=== PATIENT | female | born 1955 | race Caucasian/White ===

== ENCOUNTER 2017-08-03 17:43 | Emergency (ER) | payer OTHER ==
[~2017-08-03] VITALS: Ht 157.5 cm; Wt 65.9 kg
[2017-08-03 17:46] VITALS: TEMP 36.7; Ht 157.5 cm; Wt 65.9 kg
[2017-08-03] MEDS ORDERED: HYDR25TA4 PO (18:14)
[2017-08-03] MEDS ORDERED: LOSA1TAB38 PO (18:14)
[2017-08-03] MEDS ORDERED: GLC/500 PO (18:14)
[2017-08-03] MEDS ORDERED: GABA-113 PO (18:14)
[2017-08-03] MEDS ORDERED: OXYC-57 PO (18:14)
[2017-08-03] MEDS ORDERED: ATOR-26 PO (18:14)
[2017-08-03] MEDS ORDERED: DABI150C PO (18:14)
[2017-08-03] MEDS ORDERED: NTRGSL/4 UT (18:14)
[2017-08-03] MEDS ORDERED: ASPI81TA28 PO (18:14)
[2017-08-03] MEDS ORDERED: CETI10TA84 PO (18:14)
[2017-08-03] MEDS ORDERED: DOXY100C41 PO (18:33)
--- NOTE | 2017-08-03 18:34 | EMERGENCY ROOM VISIT NOTE ---
History Report prepared by Khang: Calli Sorenson Under the Supervision of: Dr. Baltazar Ramirez D.O. 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 She reports she pulled a hangnail out of her right ring finger 2 weeks ago and some pus came out at the time. She notes that now the pus is stuck in her finger. She describes her pain infection as a pressure. She also states she has a wet cough and gets pneumonia at least once a year. She is a current every day smoker. The patient reports that she is currently on Oxycodone for her leg but it has not helped her finger. Source of History: patient Onset: 2 weeks vessel captain Position: chest, finger(s) (right ring) Quality: pressure Modifying Factors (Worsening): other (smoking) Associated Symptoms: + cough (wet) Review of Systems See HPI for pertinent positives & negatives. A total of 10 systems reviewed and were otherwise negative. Past Medical & Surgical Medical Problems: (1) No significant past medical history No significant past medical history Family History Patient reports no known family medical history. Social History Smoking Status: Current Every Day Smoker Marital Status: Current/Historical Medications Scheduled Aspirin (Aspirin Ec), 81 MG PO DAILY Atorvastatin (Lipitor), 80 MG PO DAILY Cetirizine (Zyrtec), 10 MG PO DAILY Dabigatran Etexilate Mesylate (Pradaxa), 150 MG PO BID Gabapentin (Neurontin), 300 MG PO TID Hydrochlorothiazide (Hctz), 25 MG PO DAILY Losartan Potassium (Cozaar), 100 MG PO DAILY Metformin Hcl (Glucophage), 500 MG PO BID Nitroglycerin (Nitrostat), 0.4 MG UT PRN Scheduled PRN Oxycodone/Acetaminophen 5MG/325MG (Percocet 5MG/325MG), 1 TABLET PO Q6H PRN for Pain Allergies Coded Allergies: Cefprozil (Unverified Allergy, Intermediate, ., 08/03/17) Cephalexin (Unverified Allergy, Intermediate, ., 08/03/17) Penicillins (Unverified Allergy, Intermediate, ., 08/03/17) Physical Exam Vital Signs Date Time Temp Pulse Resp B/P (MAP) Pulse Ox O2 Delivery O2 Flow Rate FiO2 08/03/17 17:46 36.7 80 18 104/59 98 Room Air Physical Exam CONSTITUTIONAL/VITAL SIGNS: Reviewed / noted above. GENERAL: Non-toxic in appearance. INTEGUMENTARY: Warm, dry, and Ama. Paronychia of the right ring finger on the radial side. Does not purulent fluid but is erythematous and tender. HEAD: Normocephalic. EYES: without scleral icterus or trauma. ENT/OROPHARYNX: clear and moist. LYMPHADENOPATHY/NECK: Is supple without lymphadenopathy or meningismus. RESPIRATORY: Lungs equal. Mild coarseness and minimal scattered expiratory wheeze. CARDIOVASCULAR: Regular rate and rhythm. GI/ABDOMEN: Soft and nontender. No organomegaly or pulsatile mass. No rebound or guarding. Normal bowel sounds. EXTREMITIES: Warm and well perfused. BACK: No CVA tenderness. NEUROLOGICAL: Intact without focal deficits. PSYCHIATRIC: normal affect. MUSCULOSKELETAL: Normally developed with good muscle tone. Medical Decision & Procedures ED Course 175: Previous medical records were reviewed. The patient was evaluated in room A10. A complete history and physical examination was performed. 1814: On reevaluation, the patient is feeling slightly better. I discussed the results and findings with the patient. She verbalized agreement of the treatment plan. She was discharged home. Medical Decision Differential diagnosis: Etiologies such as cellulitis, abscess, MRSA infection, DVT, necrotizing fasciitis, dermatitis, drug eruption, as well as others were entertained.. The patient is a 61-year-old female who presents to the ED with a chief complaint of a paronychia that has been draining for the past couple of weeks but has not continued to drain. She reports tenderness and discomfort as well as redness in the right ring finger on the radial side. The patient also reports a cough that is productive for green sputum. She states that she does not have insurance coverage here and is requesting something from the $4 prescription at [facility] but is allergic to penicillins and cephalosporins. After reviewing this list with the pharmacist, the patient was offered doxycycline prescription for $38 for a 7 day course +/-Bactrim for $4. She will take the doxycycline prescription. She was prescribed this. The patient' s exam does reveal an occasional cough with some coarseness in the right lung as well as some mild scattered expiratory wheezes. The patient's finger does reveal what appears to be a recent paronychia. I did use an 18-gauge needle to attempt to cause drainage but no drainage was obtained. The skin was retracted from the nail with the needle as well. Patient will return for worsening or other concerns. Medication Reconcilliation Current Medication List: was personally reviewed by me Blood Pressure Screening Patient's blood pressure: Low blood pressure Blood pressure disposition: Did not require urgent referral Impression Primary Impression: Paronychia Additional Impressions: Cough Acute bronchitis Scribe Attestation The scribe's documentation has been prepared under my direction and personally reviewed by me in its entirety. I confirm that the note above accurately reflects all work, treatment, procedures, and medical decision making performed by me. Departure Information Dispostion Home / Self-Care Prescriptions Doxycycline (Monohydrate) (MONODOX) 100 Mg Cap 1 CAP PO BID for 7 Days, #14 CAP Prov: Baltazar Ramirez, Kalee. 08/03/17 Referrals No Doctor, Assigned (PCP) Patient Instructions My [facility] Additional Instructions Follow-up with your doctor for further care and evaluation in 5-7 days. Return to the emergency department for worsening or new symptoms or any concerns. You have been examined and treated today on an emergency basis only. This is not a substitute for, or an effort to provide, complete comprehensive medical care. It is impossible to recognize and treat all injuries or illnesses in a single emergency department visit. It is therefore important that you follow up closely with your doctor. Call as soon as possible for an appointment. Doxycycline as prescribed. Warm soaks to finger. Problem Qualifiers
[2017-08-03 18:42] VITALS: BP 123/64; PULSE 70; O2SAT 98
== END 2017-08-03 18:43 | disposition home or self-care (01) ==
LOC: C.EDB 17:45 → C.EDA 18:43
DX: L03.011 Cellulitis of right finger (principal); J20.9 Acute bronchitis, unspecified; F17.200 Nicotine dependence, unspecified, uncomplicated; Z88.0 Allergy status to penicillin; Z88.1 Allergy status to other antibiotic agents; Z79.82 Long term (current) use of aspirin

== ENCOUNTER 2017-08-05 18:06 | Emergency (ER) | payer OTHER ==
[~2017-08-05] VITALS: Ht 157.5 cm; Wt 65.4 kg
[~2017-08-05 18:06] MED LIST: ASPI81TA28 PO; ATOR-26 PO; CETI10TA84 PO; DABI150C PO; DOXY100C41 PO; GABA-113 PO; GLC/500 PO; HYDR25TA4 PO; LOSA1TAB38 PO; NTRGSL/4 UT; OXYC-57 PO
[2017-08-05 18:08] VITALS: TEMP 36.9; Ht 157.5 cm; Wt 65.4 kg
[2017-08-05] MEDS ORDERED: LIDOCAINE 1% BUFFERED INJ 5 ML VIAL INFIL STA (18:26)
[2017-08-05] MEDS ORDERED: SULFAMETHOXAZOLE/TRIMETHOPRIM DS 800/160MG TAB PO STA (18:29)
[2017-08-05] MEDS ORDERED: SULF800T23 PO (19:23)
--- NOTE | 2017-08-05 19:24 | EMERGENCY ROOM VISIT NOTE ---
History First contact with patient: 18:15 Chief Complaint: INFECTION Stated Complaint: R HAND INFECTION Nursing Triage Summary: Rigth second finger infection. Area is red, swollen, and hot. History of Present Illness The patient is a 61 year old female who presents to the Emergency Room via private vehicle with complaints of "right hand infection". The patient states that she was seen here 2 days ago for swelling on the right fourth digit. She notes that it was attempted to be drained at that time with minimal drainage. She was placed upon doxycycline. She has been compliant with these dosages. She notes since then she had increased pain in the finger, nausea and pain extending into the right hand. She rates the pain as a 10/10. She notes difficulty sleeping secondary to the pain. There have been no fevers. She states she is diabetic, recently transitioned to metformin and has sugars in the 200s recently. Review of Systems A complete 6-point Review of Systems was discussed with the patient, with pertinent positives and negatives listed in the History of Present Illness. All remaining Review of Systems questions can be considered negative unless otherwise specified. Past Medical/Surgical History Medical Problems: (1) No significant past medical history Family History Patient reports no known family medical history. Social History Smoking Status: Current Every Day Smoker Marital Status: Current/Historical Medications Scheduled Aspirin (Aspirin Ec), 81 MG PO DAILY Atorvastatin (Lipitor), 80 MG PO DAILY Cetirizine (Zyrtec), 10 MG PO DAILY Dabigatran Etexilate Mesylate (Pradaxa), 150 MG PO BID Doxycycline (Monohydrate) (Monodox), 1 CAP PO BID Gabapentin (Neurontin), 300 MG PO TID Hydrochlorothiazide (Hctz), 25 MG PO DAILY Losartan Potassium (Cozaar), 100 MG PO DAILY Metformin Hcl (Glucophage), 500 MG PO BID Nitroglycerin (Nitrostat), 0.4 MG UT PRN Sulfa/Trimethoprim (Bactrim Ds 800MG/160MG), 1 TAB PO BID Scheduled PRN Oxycodone/Acetaminophen 5MG/325MG (Percocet 5MG/325MG), 1 TABLET PO Q6H PRN for Pain Physical Exam Vital Signs Date Time Temp Pulse Resp B/P (MAP) Pulse Ox O2 Delivery O2 Flow Rate FiO2 08/05/17 19:35 75 20 148/76 97 08/05/17 18:08 36.9 80 18 158/75 95 Room Air Physical Exam VITAL SIGNS - Vital signs and nursing notes were reviewed. Stable. Afebrile. GENERAL -61-year-old female appearing her stated age who is in no acute distress. She is nontoxic in appearance. Communicates well with provider and answers questions appropriately. SKIN -there is erythema overlying the dorsal aspect of the patient's left fourth digit. There is surrounding erythema from the finger pad to the medial aspect around the nail. There is minimal fluctuance. EXTREMITIES -there is skin changes as noted above. There is tenderness palpation overlying the finger pad of the left fourth digit extending proximally and into the other fingers and hand. The erythema is localized to that of the distalmost aspect of the left fourth digit. No deformity of the bone noted. Decreased range of motion of this region secondary to pain. No lymphangitic streaking. Medical Decision & Procedures Medications Administered Medications (Trade) Dose Ordered Sig/Imelda Route Start Time Stop Time Status Last Admin Dose Admin Trimethoprim/ Sulfamethoxazole (Septra Ds 800/ 160MG Tab) 1 tab NOW STAT PO 08/05/17 18:29 08/05/17 18:33 DC 08/05/17 19:04 1 TAB Procedure Verbal consent was obtained to perform the procedure. After saline and Betadine cleansing and 3 mL of 1% buffered lidocaine anesthesia provided a digital block standard fashion at the base of the left fourth digit, a sterile 18-gauge was advanced between the nail, cuticle and skin fold with a small amount of purulence protruding. This is most likely a paronychia. The area was cleaned with sterile saline and dressed with bacitracin and a bulky bandage. The patient tolerated the procedure well. Medical Decision Patient was seen and evaluated as above in room B11. Review was performed of nursing notes and vital signs. After obtaining a thorough history and physical examination the above work up was performed. She has a paronychia on exam. This likely occurred after she had picked at a hangnail. I believe that the doxycycline is likely appropriate however a pocket of pus is likely present. This was drained. She will be changed to Bactrim after discussing the case with the attending physician who cared for the patient on the previous visit. The patient appears stable for outpatient management given stable vital signs, no lymphangitic streaking, and drainage performed here today. A culture was sent to the lab. She declined tetanus immunization. She declined BSG. The patient was educated upon management, had questions answered prior to discharge , and was discharged home in good condition. In the evaluation and treatment of this patient the following differential diagnoses were entertained: Paronychia, felon, cellulitis, sepsis, among others. Impression Primary Impression: Paronychia Departure Information Dispostion Home / Self-Care Condition GOOD Prescriptions Sulfa/Trimethoprim (Bactrim Ds 800MG/160MG) Tab 1 TAB PO BID for 7 Days, #14 TAB Prov: Silvio Romo PA-C 08/05/17 Referrals No Doctor, Assigned (PCP) Patient Instructions My [facility] Additional Instructions You were seen in the emergency department for an infection on your finger. This was drained, and a small portion of the nail was removed to allow further drainage. Please discontinue the doxycycline and begin taking Bactrim. 1 tablet every 12 hours. Your given the first tablet here with the remainder sent to pharmacy for pickup. This is a 7 day course. If this would worsen, please return. Please watch for fevers, vomiting, or any new/concerning symptoms and if these develop please return. You may also do warm soaks and salt water. Please do not submerge this in any other type of water like swimming pools, bath tubs, or dishes. Please return with any new/concerning symptoms
[2017-08-05 19:35] VITALS: BP 148/76; PULSE 75; O2SAT 97
== END 2017-08-05 19:36 | disposition home or self-care (01) ==
LOC: C.EDB 18:07
DX: L03.012 Cellulitis of left finger (principal); F17.200 Nicotine dependence, unspecified, uncomplicated